=== PATIENT | female | born 1990 | race Two or more races ===

== ENCOUNTER 2017-12-03 20:43 | Emergency (ER) | payer BC ==
[~2017-12-03] VITALS: Ht 167.6 cm; Wt 88.5 kg
[2017-12-03] MEDS ORDERED: IBUPROFEN 600 MG TABLET PO ONE ×2 (22:00→22:18)
--- NOTE | 2017-12-03 22:48 | NUR ---
PT CAME FROM HOME C/O L ANKLE PAIN/SWELLING, BREATHING UNLABORED, DISTAL SENSATION/PULSE INTACT,
--- NOTE | 2017-12-03 22:48 | NUR ---
JAMI WRAP TO L ANKLE, EDUCATED ON CRUTCH USE
[2017-12-03 22:49] VITALS: BP 117/79
== END 2017-12-03 22:50 | disposition home or self-care (01) ==
LOC: ER 20:49
DX: S93.492A Sprain of other ligament of left ankle, initial encounter (principal); X58.XXXA Exposure to other specified factors, initial encounter; Y93.89 Activity, other specified; Y92.89 Other specified places as the place of occurrence of the external cause; Y99.8 Other external cause status
CPT/HCPCS: 73610-TC; A4606; Z7610